=== PATIENT | male | born 1995 | race Caucasian/White ===

== ENCOUNTER 2021-12-26 03:31 | Emergency (ER) | payer BC ==
[2021-12-26 03:41] VITALS: BP 99/65; PULSE 107; RESP 18; TEMP 101
[2021-12-26] MEDS ORDERED: ACETAMINOPHEN TAB 325 MG TAB PO STA (04:56)
[2021-12-26] MEDS ORDERED: ONDANSETRON ODT 4 MG TAB PO STA (04:56)
--- NOTE | 2021-12-26 05:04 | ED ---
Nausea/Vomiting/Diarrhea HPI - General Chief complaint: Nausea/Vomiting/Diarrhea Stated complaint: Nausea,vomiting Time Seen by Provider: 12/26/21 04:34 Source: patient Mode of arrival: ambulatory Limitations: no limitations - History of Present Illness Initial comments: This patient is 26-year-old man who presents to be evaluated for constellation of symptoms that started yesterday. He initially had onset of what he was describing as cold symptoms which included rhinorrhea, congestion, nonproductive cough. Over the course of tonight into this morning he has had vomiting and is not tolerating fluids. MD complaint: vomiting -: hour(s) Description of Vomiting: food contents Associated Abdominal Pain: No Severity scale (1-10): 0 Improves with: none Worsens with: none Associated Symptoms: fever/chills - Related Data Allergies Allergy/AdvReac Type Severity Reaction Status Date / Time No Known Allergies Allergy Verified 12/26/21 03:41 Review of Systems ROS Statement: Those systems with pertinent positive or pertinent negative responses have been documented in the HPI. ROS Other: All systems not noted in ROS Statement are negative. Constitutional: Reports: fever. Denies: chills, weakness ENT: Reports: congestion. Denies: ear pain, throat pain Respiratory: Reports: cough. Denies: dyspnea Cardiovascular: Denies: chest pain, palpitations Gastrointestinal: Reports: nausea, vomiting. Denies: abdominal pain, diarrhea, constipation, melena, hematochezia Genitourinary: Denies: dysuria, hematuria Musculoskeletal: Denies: back pain Skin: Denies: rash Neurological: Denies: headache, weakness General Exam Limitations: no limitations General appearance: alert, in no apparent distress Head exam: Present: atraumatic, normocephalic Eye exam: Present: normal appearance. Absent: scleral icterus, conjunctival injection Neck exam: Present: normal inspection, full ROM. Absent: meningismus, lymphadenopathy Respiratory exam: Present: normal lung sounds bilaterally. Absent: respiratory distress, wheezes, rales, rhonchi, stridor Cardiovascular Exam: Present: regular rate, normal rhythm, normal heart sounds. Absent: systolic murmur, diastolic murmur, rubs, gallop GI/Abdominal exam: Present: soft. Absent: distended, tenderness, guarding, rebound, rigid, mass Extremities exam: Present: normal inspection, normal capillary refill Back exam: Present: normal inspection Neurological exam: Present: alert Skin exam: Present: warm, dry, intact, normal color. Absent: rash Course Vital Signs 12/26/21 03:37 Temperature 101 F H Pulse Rate 107 H Respiratory 18 Rate Blood Pressure 99/65 O2 Sat by Pulse 98 Oximetry Medical Decision Making - Lab Data Lab Results 12/26/21 Range/Units 07:49 Coronavirus (PCR) Detected A (Not Detectd) Disposition Clinical Impression: COVID-19 Disposition: HOME SELF-CARE Condition: Good Instructions (If sedation given, give patient instructions): COVID-19 (Coronavirus Disease 2019) (ED) Is patient prescribed a controlled substance at d/c from ED?: No Referrals: Nonstaff,Physician [Primary Care Provider] - 1-2 days
== END 2021-12-26 08:58 | disposition home or self-care (01) ==
LOC: EC 03:31
DX: U07.1 COVID-19 (principal)
CPT/HCPCS: 87635; 99283